=== PATIENT | female | born 1995 | race American Indian/Alaskan Native ===

== ENCOUNTER 2017-04-06 04:34 | Emergency (ER) | payer OTHER ==
[2017-04-06 04:57] VITALS: BP 112/69
== END 2017-04-06 17:46 | disposition left against medical advice (07) ==
LOC: ED 04:34
DX: J02.9 Acute pharyngitis, unspecified (principal); Z53.21 Procedure and treatment not carried out due to patient leaving prior to being seen by health care provider
CPT/HCPCS: 87116; 87430